=== PATIENT | male | born 1980 | race American Indian/Alaskan Native ===

== ENCOUNTER 2016-12-13 12:47 | Emergency (ER) | payer BC ==
[2016-12-13 12:52] VITALS: RESP 18; TEMP 98.1
[2016-12-13] MEDS ORDERED: cefTRIAXone (Rocephin) 250 mg Inj IM STA (13:25)
--- NOTE | 2016-12-13 13:28 | C.PDOC ---
History Of Present Illness A 36 year old male, who denies any significant past medical history, presents to the emergency department for penile discharge and odor, which gradually began about 4 days ago. The patient admits the symptoms began after having unprotected sexual intercourse. He denies any fever, sore throat, abdominal pain , nausea, vomiting, hematuria, penile pain, penile discoloration, testicular swelling, or any other complaints at this time. Time Seen by Provider: 12/13/16 12:58 Chief Complaint (Nursing): Male Genitourinary History Per: Patient History/Exam Limitations: no limitations Onset/Duration Of Symptoms: Days (x4 days), Gradual Current Symptoms Are (Timing): Still Present Associated Symptoms: denies: Nausea, Vomiting, Urinary Symptoms Past Medical History Reviewed: Historical Data, Nursing Documentation, Vital Signs Vital Signs: Last Vital Signs Temp 98.1 F 12/13/16 12:49 Pulse 72 12/13/16 14:26 Resp 18 12/13/16 14:26 BP 118/65 12/13/16 14:26 Pulse Ox 18 L 12/13/16 14:26 - Medical History PMH: No Chronic Diseases Denies: Diabetes Surgical History: No Surg Hx Family History: States: No Known Family Hx - Social History Hx Alcohol Use: Yes Hx Substance Use: No Review Of Systems Except As Marked, All Systems Reviewed And Found Negative. Constitutional: Negative for: Fever ENT: Negative for: Throat Pain, Throat Swelling Gastrointestinal: Negative for: Nausea, Vomiting, Abdominal Pain, Diarrhea Genitourinary: Positive for: Penile Discharge, Other (penile odor ). Negative for: Dysuria, Frequency, Incontinence, Hematuria, Rash, Penile Pain Neurological: Negative for: Weakness, Numbness, Altered Mental Status, Headache Physical Exam - Physical Exam Appears: Well, Non-toxic, No Acute Distress Skin: Normal Color, Warm, Dry, No Rash Eye(s): bilateral: PERRL Nose: No Discharge Oral Mucosa: Moist, No Drooling Throat: No Erythema Neck: Supple Cardiovascular: Rhythm Regular Respiratory: No Decreased Breath Sounds, No Accessory Muscle Use, No Stridor, No Wheezing Gastrointestinal/Abdominal: Soft, No Tenderness, No Distention, No Guarding Back: No CVA Tenderness Male Genital: Other (Patient refused genital examination) Extremity: No Swelling Neurological/Psych: Oriented x3, Normal Speech, Normal Cognition ED Course And Treatment O2 Sat by Pulse Oximetry: 100 Pulse Ox Interpretation: Normal Progress Note: On re-evaluation, pt is afebrile, hemodynamicaly stable. Non- toxic. PUlseOx 100% RA. ENT: no acute findings. Neck: Supple. Lungs: CTA B/L , BS equal B/L. ABd: benign, (-) guarding, (-) rebound. Skin: no rash. UA results review and appears noraml. Pt received STD tx per request, suspect urethritis secondary to STD. Pt advised, encourage partner to be tested and tx. ref. to f/u with PMD in 2-3 days for re-eavl. return i any new changes. Medical Decision Making Medical Decision Making: Treatment Plan: -- Chlamydia/ GC RNA, TMA -- Zithromax, Recphin -- Urine Culture -- Urinalysis Progress Notes: The patient refused to have a genital examination. Disposition Counseled Patient/Family Regarding: Studies Performed, Diagnosis, Need For Followup, Rx Given - Disposition Referrals: [facility] [Outside] Disposition: HOME/ ROUTINE Disposition Time: 14:10 Condition: STABLE Additional Instructions: Take medication as prescribed Encourage partner to get tested Consider sexual protection No sexual activity for1 week Follow up with PMD in 2-3 days for re-evaluation. Return to ED if any worsening or new changes. Prescriptions: Doxycycline Hyclate [Doryx] 100 mg PO BID #14 cap Instructions: Nonspecific Urethritis in Men (ED), Dysuria (ED) Forms: [facility] (Turkmen) - Clinical Impression Clinical Impression: Dysuria, Urethritis - Scribe Statement The provider has reviewed the documentation as recorded by the Scribe Maegan Marte All medical record entries made by the Scribe were at my direction and personally dictated by me. I have reviewed the chart and agree that the record accurately reflects my personal performance of the history, physical exam, medical decision making, and the department course for this patient. I have also personally directed, reviewed, and agree with the discharge instructions and disposition.
[2016-12-13 13:46] LABS: RBC URINE 1 /hpf (0-3); URINE BILIRUBIN NEGATIVE (NEGATIVE); URINE BLOOD NEGATIVE (NEGATIVE); URINE COLOR Yellow (YELLOW); URINE GLUCOSE (UA) NORMAL (Normal); URINE KETONE NEGATIVE (NEGATIVE); URINE LEUKOCYTE ESTERASE NEG Leu/uL (Negative); URINE PROTEIN NEGATIVE (NEGATIVE); WBC URINE < 1 /hpf (0-5)
[2016-12-13 14:27] VITALS: BP 118/65; PULSE 72
[2016-12-13 15:12] VITALS: O2SAT 100
== END 2016-12-13 14:27 | disposition home or self-care (01) ==
LOC: C.ER 12:47
DX: N34.2 Other urethritis (principal); R30.0 Dysuria
CPT/HCPCS: 81001; 87086; 87491; 87591; 96372; 99284; J0696

== ENCOUNTER 2016-12-17 17:59 | Emergency (ER) | payer BC ==
[2016-12-17 18:11] VITALS: BP 125/78; PULSE 77; RESP 20; TEMP 97.9; O2SAT 99
--- NOTE | 2016-12-17 19:04 | C.PDOC ---
History Of Present Illness The patient reports 3 month history of persistent itchy rash to the bilateral feet. Patient states he used an unknown steroid cream without relief. Denies fever, drainage, travel, numbness, weakness. Time Seen by Provider: 12/17/16 18:18 Chief Complaint (Nursing): Abnormal Skin Integrity History Per: Patient History/Exam Limitations: no limitations Current Symptoms Are (Timing): Still Present Quality Of Symptoms: Itching Past Medical History Reviewed: Historical Data, Nursing Documentation, Vital Signs Vital Signs: Last Vital Signs Temp 97.9 F 12/17/16 18:08 Pulse 77 12/17/16 18:08 Resp 20 12/17/16 18:08 BP 125/78 12/17/16 18:08 Pulse Ox 99 12/17/16 19:07 - Medical History PMH: No Chronic Diseases Denies: Diabetes Family History: States: No Known Family Hx - Social History Hx Alcohol Use: Yes Hx Substance Use: No - Immunization History Hx Tetanus Toxoid Vaccination: No Hx Influenza Vaccination: No Hx Pneumococcal Vaccination: No Review Of Systems Constitutional: Negative for: Fever, Chills Musculoskeletal: Negative for: Leg Pain, Foot Pain Skin: Positive for: Rash Neurological: Negative for: Weakness, Numbness Physical Exam - Physical Exam Appears: Well, No Acute Distress Skin: Other ((+) peeling scaly rash to the plantar aspect of the bilateral feet. No evidence of cellulitis) Head: Atraumatic, Normacephalic Eye(s): bilateral: Normal Inspection Oral Mucosa: Moist Extremity: Normal ROM, No Tenderness, Capillary Refill (< 2 sec), No Swelling Neurological/Psych: Oriented x3, Normal Motor, Normal Sensation Gait: Steady ED Course And Treatment O2 Sat by Pulse Oximetry: 99 (on RA) Pulse Ox Interpretation: Normal Disposition - Disposition Referrals: Yuriy Rios MD [Staff Provider] - Jus Freeman DO [[facility]] - Disposition: HOME/ ROUTINE Disposition Time: 18:58 Condition: GOOD Additional Instructions: Return if worsened. Prescriptions: Butenafine HCl [Lotrimin Ultra] 1 gm TP BID #60 gm Ketoconazole [Nizoral] 120 ml TP BID #1 shampoo Instructions: Tinea Pedis (ED) Forms: [employer] (Albanian) - Clinical Impression Clinical Impression: Tinea pedis
== END 2016-12-17 19:09 | disposition home or self-care (01) ==
LOC: C.ER 17:59
DX: B35.3 Tinea pedis (principal)